=== PATIENT | male | born 1970 | race Caucasian/White ===

== ENCOUNTER 2025-06-24 12:09 | Emergency (ER) | payer MEDICAID ==
[2025-06-24 12:22] VITALS: TEMP 97.7
[2025-06-24] MEDS ORDERED: BABY ASPIRIN 81 MG CHEW ONE (12:36)
[2025-06-24] MEDS ORDERED: NITRO-BID 2% UD PACKETS ONE (12:36)
[2025-06-24] MEDS: NITRO-BID 2% UD PACKETS TOP ONE (12:37)
[2025-06-24] MEDS: BABY ASPIRIN 81 MG CHEW PO ONE (12:37)
[2025-06-24 12:39] LABS: Hematocrit 44.5 % (40.1-51.0); Hemoglobin 13.9 g/dL (13.7-17.5); Mean Corpuscular Hemoglobin 25.1 pg (25.7-32.2); Mean Corpuscular Hgb Concent. 31.2 g/dL (32.3-36.5); Platelet Count 264 x10^3/uL (163-337); Red Blood Count 5.53 x10^6/uL (4.63-6.08); White Blood Count 12.2 x10^3/uL (4.23-9.07)
[2025-06-24 12:46] LABS: Calcium 9.6 mg/dL (8.4-10.2); Carbon Dioxide 26.0 mmol/L (22-30); Creatinine 1 0.85 mg/dL (0.66-1.25); EST GLOMERULAR FILTRATION RATE 103.9 ML/MIN; Glucose 110.0 mg/dL (74-106); Potassium 4.2 mmol/L (3.5-5.1); SGOT/AST 21.0 U/L (17-59); SGPT/ALT 21.0 U/L (0-50); Total Protein 7.2 g/dL (6.3-8.2)
--- NOTE | 2025-06-24 12:52 | XRAY ---
Indication: Chest pain. Comparison: None Portable chest demonstrates normal heart and lungs. Bony thorax intact. No acute findings.
--- NOTE | 2025-06-24 12:57 | ERPHSYRPT ---
- History of Present Illness Patient Subjective Stated Complaint: pt c/o of right sided chest pain that radiates to his back and to his left ear and under his left arm Triage Nursing Assessment: Pt brought self to the ER, vitals wnl, rates pain as 6/10, pulses normal, skin n/w/diaphoretic, hx of CA with a stent, pain is in the right chest and radiates to the back and also to his left ear, took nitro last night with relief, began hurting again while at work Physician History: Presents with chest pain, diaphoresis, radiation to his neck and shoulder, patient has known history of coronary artery disease, and previous infarction, he had a cardiac stent placed in 1 vessel, those events occurred in 2021, he apparently had been taken off all his medication a year and a half later, he has not been seen by cardiology For about a year and a half, No recent stress test, he currently takes no medications, this is the second time he had an episode where he had some chest pain similar to his previous heart attack, He is not taking aspirin, He states his blood pressure has been normal, he also states that his cholesterol is high normal Timing/Duration: hour(s) (1), improved Quality: pressure, tightness Location: substernal Chest Pain Radiation: neck, arm Severity of Pain-Max: severe Severity of Pain-Current: mild Modifying Factors: Improves With: nothing Associated Symptoms: shortness of breath, diaphoresis Prior Chest Pain/Cardiac Workup: cardiac cath, heart attack Nitro Today/Relief: no nitro taken today Aspirin Treatment Today: no aspirin today Allergies/Adverse Reactions: No Known Drug Allergies Allergy (Verified 06/24/25 12:22) Home Medications: No Reportable Medications [No Reported Medications] 06/24/25 [History] Hx Influenza Vaccination/Date Given: No Hx Pneumococcal Vaccination/Date Given: No Travel Risk - International Travel Have you traveled outside of the country in past 3 weeks: No - Emerging Infectious Disease Are you exhibiting symptoms associated with any current EIDs: Yes Symptoms: Shortness of Breath - Past Medical History Pertinent Past Medical History: Yes Cardiac History: High Cholesterol, Hypertension, Myocardial Infarction (CA) - Past Surgical History Past Surgical History: Yes Cardiac: Cardiac Stent Gastrointestinal: Cholecystectomy, Hernia Repair - Social History Smoking Status: Current every day smoker Exposure to second hand smoke: Yes Drug Use: marijuana - Social Determinants of Health Will the patient participate in the screening: Yes Do you worry about a steady place to live?: No Do you have any problems with any of the following?: No known problems In the past 12 months,have you had to go without utilities?: No Transportation Issues: No Has anyone in your support network made you feel unsafe?: No Have you or anyone in your house had to go w/o enough food: No - Nursing Vital Signs Nursing Vital Signs: Initial Vital Signs Pulse Rate 84 06/24/25 12:11 Respiratory Rate 19 06/24/25 12:11 Blood Pressure 123/81 06/24/25 12:11 O2 Sat by Pulse Oximetry 96 06/24/25 12:11 Pain Scale Pain Intensity 0 - Physical Exam General Appearance: no apparent distress, alert, obese Eye Exam: PERRL/EOMI Ears, Nose, Throat Exam: normal ENT inspection, TMs normal, pharynx normal, moist mucous membranes Neck Exam: normal inspection, non-tender, supple, full range of motion Respiratory Exam: normal breath sounds, chest tenderness, lungs clear Cardiovascular Exam: regular rate/rhythm, normal heart sounds, normal peripheral pulses Gastrointestinal/Abdomen Exam: soft, normal bowel sounds Back Exam: normal inspection, normal range of motion Extremity Exam: normal inspection, normal range of motion, pelvis stable Neurologic Exam: alert, oriented x 3, cooperative, bellman captain II-XII nml as tested Skin Exam: normal color, warm, dry SpO2 Interpretation: normal SpO2: 97 Ordered Tests: Active Orders 24 hr Category Date Time Status CHEST 1 VIEW (PORTABLE) Stat Exams 06/24/25 12:28 Completed CBC W DIFF Stat Lab 06/24/25 12:15 Completed CMP Stat Lab 06/24/25 12:15 Completed Manual Differential NC Stat Lab 06/24/25 12:15 Completed TROPONIN Q4H Lab 06/24/25 12:15 Completed TROPONIN Q4H Lab 06/24/25 14:40 Completed TROPONIN Q4H Lab 06/24/25 20:30 Ordered Medication Summary Discontinued Medications Generic Name Dose Route Start Last Admin Trade Name Freq PRN Reason Stop Dose Admin Aspirin 324 mg 06/24/25 12:27 06/24/25 12:37 Aspirin 81 Mg Tab.Chew PO 06/24/25 12:28 324 mg STAT ONE Administration Aspirin Confirm 06/24/25 12:36 Aspirin 81 Mg Tab.Chew Administered 06/24/25 12:37 Dose 324 mg .ROUTE .STK-MED ONE Morphine Sulfate 4 mg 06/24/25 13:26 06/24/25 13:32 Morphine Sulfate 4 Mg/Ml Injection IV 06/24/25 13:27 4 mg STAT ONE Administration Morphine Sulfate Confirm 06/24/25 13:31 Morphine Sulfate 4 Mg/Ml Injection Administered 06/24/25 13:32 Dose 4 mg .ROUTE .STK-MED ONE Nitroglycerin 1 gm 06/24/25 12:29 06/24/25 12:37 Nitroglycerin 1 Gm Packet TOP 06/24/25 12:30 1 gm STAT ONE Administration Nitroglycerin Confirm 06/24/25 12:36 Nitroglycerin 1 Gm Packet Administered 06/24/25 12:37 Dose 1 gm .ROUTE .STK-MED ONE Ondansetron HCl 4 mg 06/24/25 13:27 06/24/25 13:31 Ondansetron Hcl 4 Mg/2 Ml Vial IV 06/24/25 13:28 4 mg STAT ONE Administration Ondansetron HCl Confirm 06/24/25 13:31 Ondansetron Hcl 4 Mg/2 Ml Vial Administered 06/24/25 13:32 Dose 4 mg .ROUTE .STK-MED ONE Lab/Rad Data: Laboratory Result Diagrams 06/24/25 12:15 06/24/25 12:15 Laboratory Results 06/24/25 06/24/25 06/24/25 Range/Units 14:40 12:15 12:15 WBC (4.23-9.07) x10^3/uL RBC (4.63-6.08) x10^6/uL Hgb (13.7-17.5) g/dL Hct (40.1-51.0) % MCV (79.0-92.2) fL MCH (25.7-32.2) pg MCHC (32.3-36.5) g/dL RDW (11.6-14.4) % Plt Count (163-337) x10^3/uL MPV (9.4-12.4) fL Segmented Neutrophils (34.0-67.9) % Lymphocytes (Manual) (21.8-53.1) % Monocytes (Manual) (5.3-12.2) % Eosinophils (Manual) (0.8-7.0) % Atypical Lymphocytes % Platelet Estimate (NORMAL) RBC Morphology Sodium 142 (135-145) mmol/L Potassium 4.2 (3.5-5.1) mmol/L Chloride 105 (98-107) mmol/L Carbon Dioxide 26 (22-30) mmol/L Anion Gap 14.6 (5-15) MEQ/L BUN 11 (9-20) mg/dL Creatinine 0.85 (0.66-1.25) mg/dL Estimated GFR 103.9 ML/MIN Glucose 110 H (74-106) mg/dL Calcium 9.6 (8.4-10.2) mg/dL Total Bilirubin 0.30 (0.2-1.3) mg/dL AST 21 (17-59) U/L ALT 21 (0-50) U/L Alkaline Phosphatase 77 (38-126) U/L Troponin I < 0.012 < 0.012 (0.000-0.033) ng/mL Serum Total Protein 7.2 (6.3-8.2) g/dL Albumin 4.3 (3.5-5.0) g/dL 06/24/25 Range/Units 12:15 WBC 12.2 H (4.23-9.07) x10^3/uL RBC 5.53 (4.63-6.08) x10^6/uL Hgb 13.9 (13.7-17.5) g/dL Hct 44.5 (40.1-51.0) % MCV 80.5 (79.0-92.2) fL MCH 25.1 L (25.7-32.2) pg MCHC 31.2 L (32.3-36.5) g/dL RDW 15.9 H (11.6-14.4) % Plt Count 264 (163-337) x10^3/uL MPV 10.8 (9.4-12.4) fL Segmented Neutrophils 58 (34.0-67.9) % Lymphocytes (Manual) 28 (21.8-53.1) % Monocytes (Manual) 3 L (5.3-12.2) % Eosinophils (Manual) 4 (0.8-7.0) % Atypical Lymphocytes 7 % Platelet Estimate NORMAL (NORMAL) RBC Morphology NORMAL Sodium (135-145) mmol/L Potassium (3.5-5.1) mmol/L Chloride (98-107) mmol/L Carbon Dioxide (22-30) mmol/L Anion Gap (5-15) MEQ/L BUN (9-20) mg/dL Creatinine (0.66-1.25) mg/dL Estimated GFR ML/MIN Glucose (74-106) mg/dL Calcium (8.4-10.2) mg/dL Total Bilirubin (0.2-1.3) mg/dL AST (17-59) U/L ALT (0-50) U/L Alkaline Phosphatase (38-126) U/L Troponin I (0.000-0.033) ng/mL Serum Total Protein (6.3-8.2) g/dL Albumin (3.5-5.0) g/dL - Progress Progress Note: 06/24/25 17:09 Discussed labs EKG chest x-ray, with the patient's history of having a stent in no medication for the last 2-1/2 years I decided to consult cardiology at [facility], Patient be transferred For further inpatient workup; BP 85/60 With no symptoms, his alarm keeps going off, I removed his nitro glycerin paste as he also has a headache - Departure Departure Disposition: Transfer Clinical Impression: Atypical chest pain Condition: Stable Critical Care Time: Yes Critical Care Time(excluding separately billable procedures): Critical 30-74 mins
[2025-06-24 13:25] LABS: Total Cells Counted 100
[2025-06-24] MEDS ORDERED: Zofran 4 MG/2 ML VIAL ONE (13:31)
[2025-06-24] MEDS ORDERED: MORPHINE SULFATE 4 MG INJ ONE (13:31)
[2025-06-24] MEDS: Zofran 4 MG/2 ML VIAL IV ONE (13:31)
[2025-06-24] MEDS: MORPHINE SULFATE 4 MG INJ IV ONE (13:32)
[2025-06-24 16:15] VITALS: O2SAT 97
[2025-06-24 18:22] VITALS: PULSE 77
[2025-06-24 19:23] VITALS: BP 125/75; RESP 19
== END 2025-06-24 19:25 | disposition short-term general hospital (02) ==
LOC: ED 12:09
DX: R07.89 Other chest pain (principal); I10 Essential (primary) hypertension; Z72.0 Tobacco use